=== PATIENT | male | born 1985 | race Hispanic/Latino ===

== ENCOUNTER 2017-01-17 15:27 | Emergency (ER) | payer SELFPAY ==
[~2017-01-17] VITALS: Ht 167.6 cm; Wt 77.3 kg
[2017-01-17 15:35] VITALS: BP 148/90; PULSE 77; RESP 14; O2SAT 97
--- NOTE | 2017-01-17 16:19 | ED.REPORT ---
HPI-Trauma Minor / Fall Date of Service Jan 17, 2017 ED Provider: Mary Graves History of Present Illness: cut on left side of head. fell while working at home, pushing a board and fell and hit metal around 230 today. no loc no vomiting. last tdap unknown. no primary care. works in construction. 07/07 Nursing Notes Stated Complaint: TRIPPED HIT HEAD ON CEMENT Chief Complaint: Head, Face, Neck Trauma Allergies: Coded Allergies: No Known Allergies (Unverified , 01/17/17) General Time Seen by MD: 16:18 Chief Complaint Fall, Face injury Hx Obtained From: Patient Onset Occurred: 1 - 4 hours ago Caused by: Accidental Context: Occurred at: Home injury Past Medical History Past Medical History Denies: Asthma Past Surgical History tendon repair on left hand 2010 Smoking History Never Smoker Social History Alcohol Use: "Social" Drug Use: Denies drug use Occupation lives with relatives, single, works in construction Ambulatory Status Independent Review of Systems Basic Review of Systems Cardiovascular: No chest pain, No dyspnea on exertion, No orthopnea, No parox noct dyspnea, No palpitations Allergy / Immune: No allergy Psychiatric: Normal thought content Physical Exam Initial Vital Signs Vital Signs (First) Date Time Temp Pulse Resp B/P Pulse Ox O2 Delivery O2 Flow Rate FiO2 01/17/17 15:35 37.3 77 14 148/90 97 Room Air Initial VS: Reviewed, Vital signs normal Head / Eyes: Atraumatic, Normocephalic, PERRL ENT: Mucous membranes moist, Conjunctiva normal, No scleral icterus Respiratory: Breath sounds normal, Clear to auscultation, No respiratory distress Cardiovascular: Regular rate & rhythm, Heart sounds normal, Intact distal pulses Abdomen / GI: Soft, Non-tender, No guarding, No rebound, No distention Back: No CVA tenderness Lymphatic: No lymphadenopathy Extremities: Vascular intact, Neuro intact, No swelling, No tenderness Skin: Warm, Dry, No cyanosis Neurologic: Alert, Oriented, Nonfocal Psychiatric: Mood/affect normal, Behavior normal, Normal thought content General/Constitutional: Awake, Alert, No acute distress, Well appearing, Well developed, Well hydrated Neck: Atraumatic, Supple, No meningismus, Full range of motion, No adenopathy ENT: Atraumatic, Airway patent, Mucous membranes moist, Pharynx NL 1 cm superficial laceration on left side of forehead. no active bleeding Respiratory / Chest: Atraumatic, Breath sounds NL, Breath sounds = bilat, No respiratory distress Cardiovascular: Heart rate NL, Regular rhythm, Heart sounds NL, No gallop Abdomen: Atraumatic, Soft, Non-tender Procedures Laceration Management Procedure Performed by: Allied health pract Consent / Setup / Site Prep: Informed consent provided, Consent from patient Location of Wound: left side of head Wound Length: 1 cm Digital Block: No Wound Preparation: Normal saline Repair Skin: Dermabond Post-Procedure / Complications: No complications, Condition improved, Tolerated procedure well, Patient stable Re-Eval/Medical Decision Med Decision/Clinical Course 31 year old male presents for evualation of laceration on side of head. This occured while working at home. Neuro exam is normal. Laceration is superficial. REpaired with dermabond. No sign of head bleed or concerning neuro signs Discharge & Departure Impression: Primary Impression: Facial laceration Encounter type: initial encounter Qualified Code: S01.81XA - Laceration without foreign body of other part of head, initial encounter Disposition: Home Patient Instructions: Facial Laceration (ED) Additional Instructions: The laceration is superficial and has been repaired with dermabond. do not pick at the glue. It will dry and fade by itself. Can use ibuprofen 800 mg up to 3 times a day if needed for any discomfort. You have been updated on your tdap today. You can work tomorrow. Please establish in primary care with [facility]. I am sorry this happened. Referrals: [facility] EDSupervising Provider for APC: Anibal Hutchison MD copies to: [facility] Mary Graves Jan 17, 2017 16:19
[2017-01-17] MEDS ORDERED: Tissue Adhesive Liq (CS Supplied) TOPICAL ONE (16:35)
[2017-01-17] MEDS ORDERED: TdaP Vaccine 0.5 mL Inj IM ONE (16:35)
[2017-01-17 17:28] VITALS: BP 132/81; PULSE 70; RESP 20; O2SAT 97
== END 2017-01-17 17:31 | disposition home or self-care (01) ==
LOC: SED 15:27
DX: S01.81XA Laceration without foreign body of other part of head, initial encounter (principal); W01.10XA Fall on same level from slipping, tripping and stumbling with subsequent striking against unspecified object, initial encounter; Y93.89 Activity, other specified; Y92.019 Unspecified place in single-family (private) house as the place of occurrence of the external cause; Y99.0 Civilian activity done for income or pay; Z23 Encounter for immunization